=== PATIENT | male | born 1950 | race Asian ===

== ENCOUNTER 2023-07-16 14:44 | Emergency (ER) | payer MEDICARE ==
[~2023-07-16] VITALS: Ht 170.2 cm; Wt 68.0 kg
[2023-07-16 14:48] VITALS: O2SAT 99
[2023-07-16] MEDS: IBUPROFEN 600MG TABLET PO ONE (15:30)
[2023-07-16] MEDS: BACITRACIN ZINC OINT UDPKT TOP ONE (16:45)
[2023-07-16 17:58] VITALS: BP 135/93; PULSE 69; RESP 18; TEMP 98.2
== END 2023-07-16 18:13 | disposition home or self-care (01) ==
LOC: ER 14:44
DX: S00.31XA Abrasion of nose, initial encounter (principal); E11.9 Type 2 diabetes mellitus without complications; R51.9 Headache, unspecified; W01.0XXA Fall on same level from slipping, tripping and stumbling without subsequent striking against object, initial encounter; Y93.89 Activity, other specified; Y92.512 Supermarket, store or market as the place of occurrence of the external cause; Y99.9 Unspecified external cause status
CPT/HCPCS: 70486; 99284